=== PATIENT | male | born 1975 | race Caucasian/White ===

== ENCOUNTER → 2022-01-02 | Outpatient (CLI) | payer BC ==
--- NOTE | 2022-01-03 06:12 | MR ---
EXAMINATION TYPE: MR shoulder LT wo con DATE OF EXAM: 01/02/2022 COMPARISON: None HISTORY: LEFT SHOULDER PAIN Multiplanar multiecho imaging of the left shoulder with no contrast. Biceps tendon is intact. Glenoid ervin appear intact. The subscapularis tendon is intact. The supraspinatus tendon appears intact. No retraction. There is a minute shoulder joint effusion. Th ere is some spurring and cystic changes at the AC joint. No significant subacromial impingement. The infraspinatus tendon is intact. No evidence of a fracture. Humeral head is intact. IMPRESSION: There are small shoulder joint effusion suggestive of some mild synovitis. No evidence of rotator cuf f tear.
== END | disposition home or self-care (01) ==
LOC: RADMRIMAIN 10:44
PROVIDERS: ATTEND Orthopaedic Surgery
DX: M25.512 Pain in left shoulder (principal); M25.412 Effusion, left shoulder

== ENCOUNTER 2022-02-15 21:32 | Emergency (ER) | payer BC ==
[2022-02-15 21:37] VITALS: BP 130/84; PULSE 96; RESP 20; TEMP 98.2
[2022-02-15] MEDS ORDERED: AMOXIC-POT CLAV 875-125MG 1 EACH TAB PO STA (22:21)
[2022-02-15] MEDS ORDERED: SULFAMETHOX-TMP 800-160MG 1 EACH TAB PO STA (22:21)
[2022-02-15] MEDS ORDERED: AMOXIC-POT CLAV 875MG STARTER PACK 2 TAB BTL PO STA (22:23)
[2022-02-15] MEDS ORDERED: SULFAMETH-TMP DS STARTER PACK 2 TAB BTL PO STA (22:23)
--- NOTE | 2022-02-15 22:28 | ED ---
Skin/Abscess/FB HPI - General Chief complaint: Skin/Abscess/Foreign Body Stated complaint: Cyst in armpit,Pain Time Seen by Provider: 02/15/22 21:39 Source: patient, RN notes reviewed, old records reviewed Mode of arrival: ambulatory Limitations: no limitations - History of Present Illness Initial comments: This is a 46-year-old male to the emergency department today. Presents today for evaluation of right arm pain right armpit pain and swelling. Symptoms have been significantly worse over the last 3 days. He has had a similar episode on his left arm. He is without fevers. Patient was sent for evaluation from urgent care MD complaint: abscess/boil (Right axillary) -: days(s) Tetanus Up to Date: yes Location: [facility] Severity: severe Severity scale (1-10): 9 Quality: aching Consistency: constant Improves with: none Worsens with: none Context: recent illness, recent antibiotic Associated symptoms: denies other symptoms (Patient start antibiotics today) Treatments Prior to Arrival: attempted to drain pus at home - Related Data Previous Rx's Medication Instructions Recorded Amoxic-Pot Clav 875-125Mg 1 tab PO Q12HR #20 tablet 02/15/22 [Augmentin 875-125] Sulfamethox-Tmp 800-160Mg [Bactrim 2 tab PO BID #40 tab 02/15/22 DS 800-160 mg] Allergies Allergy/AdvReac Type Severity Reaction Status Date / Time No Known Allergies Allergy Verified 02/15/22 21:37 Review of Systems ROS Statement: Those systems with pertinent positive or pertinent negative responses have been documented in the HPI. ROS Other: All systems not noted in ROS Statement are negative. Past Medical History Past Medical History: Hypertension History of Any Multi-Drug Resistant Organisms: MRSA Date of last positivie culture/infection: 05/12/20 MDRO Source:: MRSA BREAST Past Surgical History: Orthopedic Surgery Past Psychological History: No Psychological Hx Reported Smoking Status: Current every day smoker Past Alcohol Use History: Occasional Past Drug Use History: None Reported General Exam Limitations: no limitations General appearance: alert, in no apparent distress Head exam: Present: atraumatic, normocephalic, normal inspection Eye exam: Present: normal appearance, PERRL, EOMI. Absent: scleral icterus, conjunctival injection, periorbital swelling ENT exam: Present: normal exam, mucous membranes moist Neck exam: Present: normal inspection. Absent: tenderness, meningismus, lymphadenopathy Respiratory exam: Present: normal lung sounds bilaterally. Absent: respiratory distress, wheezes, rales, rhonchi, stridor Cardiovascular Exam: Present: regular rate, normal rhythm, normal heart sounds. Absent: systolic murmur, diastolic murmur, rubs, gallop, clicks GI/Abdominal exam: Present: soft, normal bowel sounds. Absent: distended, tenderness, guarding, rebound, rigid Extremities exam: Present: normal inspection, full ROM, tenderness (Right axillary tenderness, significant abscess), normal capillary refill. Absent: pedal edema, joint swelling, calf tenderness Back exam: Present: normal inspection Neurological exam: Present: alert, oriented X3, CN II-XII intact Psychiatric exam: Present: normal affect, normal mood Skin exam: Present: warm, dry, intact, normal color. Absent: rash Course Vital Signs 02/15/22 21:34 Temperature 98.2 F Pulse Rate 96 Respiratory 20 Rate Blood Pressure 130/84 O2 Sat by Pulse 94 L Oximetry - Reevaluation(s) Reevaluation #1: 02/15/22 22:25 Medical record is reviewed Reevaluation #2: 02/15/22 22:25 Patient improvement here in the Reevaluation #3: 02/15/22 22:25 patient informed of results and questions answered Medical Decision Making - Medical Decision Making 46 mailed ER with right arm. Axillary abscess. Patient has had this for 4 days is noticed, patient's abscesses opened here in the ER drainage with. The drainage, patient placed on antibiotics and can be discharged home Disposition Clinical Impression: Abscess of right axilla Disposition: HOME SELF-CARE Instructions (If sedation given, give patient instructions): Abscess (ED), Abscess Incision and Drainage (ED) Prescriptions: Amoxic-Pot Clav 875-125Mg [Augmentin 875-125] 1 tab PO Q12HR #20 tablet Sulfamethox-Tmp 800-160Mg [Bactrim DS 800-160 mg] 2 tab PO BID #40 tab Is patient prescribed a controlled substance at d/c from ED?: No Referrals: Radha Jung MD [Primary Care Provider] - 1-2 days Time of Disposition: 22:30
== END 2022-02-15 22:33 | disposition home or self-care (01) ==
LOC: EC 21:32
DX: L02.411 Cutaneous abscess of right axilla (principal); I10 Essential (primary) hypertension; F17.200 Nicotine dependence, unspecified, uncomplicated
CPT/HCPCS: 99283

== ENCOUNTER 2022-03-02 09:26 | Day surgery (SDC) | payer BC ==
[2022-02-28 08:52] VITALS: BMI 47.9
--- NOTE | 2022-03-02 02:14 | HP ---
HISTORY AND PHYSICAL DATE OF SURGERY: 03/02/2022 HISTORY OF PRESENT ILLNESS: Bryson York is a 46-year-old gentleman, seen with progressive left shoulder pain. We discussed options for treatment. He elected to proceed with left shoulder arthroscopy. Consent regarding the procedure was obtained. PAST MEDICAL HISTORY: Hypertension. PAST SURGICAL HISTORY: Knee arthroscopy. DAILY MEDICATION: Lisinopril. ALLERGIES: None. SOCIAL HISTORY: Noncontributory. PHYSICAL EVALUATION OF HIS LEFT SHOULDER: Flexion is 140 degrees, abduction is 130 degrees, external rotation is 50 degrees with pain and weakness. Tenderness along the anterolateral acromion and glenohumeral joint as well as rotator cuff insertion site. Impingement sign is positive at 100. He has a positive anterior apprehension sign. His distal neurovascular exam is intact. RADIOGRAPHS: Of the left shoulder revealed a type 2 acromion, evidence for acromioclavicular joint osteoarthritis. Left shoulder MRI revealed a labral cyst with possible labral tear and acromioclavicular joint osteoarthritic changes. IMPRESSION: 1. Left shoulder impingement with labral tear. 2. Left shoulder acromioclavicular joint osteoarthritis. 3. Hypertension. PLAN: Left shoulder arthroscopy with subacromial decompression, possible labral repair versus debridement. MMODL / IJN: [id number] /
[~2022-03-02 09:26] MED LIST: DEXAMETHASONE SOD PHOSPHATE 4 MG/ML 1 ML VIAL IV ONE; LACTATED RINGERS 1,000 ML IV SCH; ONDANSETRON 4 MG/2 ML VIAL IVP ONE; ceFAZolin 3 GM in SODIUM CHLORIDE 0.9% 100 ML IVPB PRN
[2022-03-02] MEDS ORDERED: MIDAZOLAM 2 MG/2 ML VIAL IVP ONE (10:41)
[2022-03-02] MEDS ORDERED: fentaNYL (PF) 50 MCG/ML 2 ML AMP IVP ONE (10:41)
[2022-03-02] MEDS ORDERED: fentaNYL (PF) 50 MCG/ML 2 ML AMP ONE (11:05)
[2022-03-02] MEDS ORDERED: SUCCINYLCHOLINE CHLORIDE 200 MG/10 ML VIAL IV ONE (11:05)
[2022-03-02] MEDS ORDERED: MIDAZOLAM 2 MG/2 ML VIAL ONE (11:05)
[2022-03-02] MEDS ORDERED: ROPIVACAINE 5 MG/ML 30 ML VIAL ONE (11:05)
[2022-03-02] MEDS ORDERED: LIDOCAINE 2% INJ 20 MG/ML (2 ML VIAL) ONE (11:05)
[2022-03-02] MEDS ORDERED: PROPOFOL 10 MG/ML 20 ML VIAL IV ONE (11:05)
--- NOTE | 2022-03-02 12:56 | P.OP ---
Date of Procedure: 03/02/22 Preoperative Diagnosis: Left shoulder impingement Postoperative Diagnosis: 1. Left shoulder rotator cuff tear 2. Left shoulder anterior labral tear 3. Left shoulder impingement Procedure(s) Performed: 1. Left shoulder arthroscopic rotator cuff repair 2. Left shoulder arthroscopic labral repair 3. Left shoulder arthroscopic subacromial decompression Implants: 23.5 Arthrex push lock anchors 14.75 Arthrex a lock anchor Anesthesia: GETA, regional (Interscalene block) Surgeon: Shyam Moya Wireless Manager #1: Torin Bhatt Estimated Blood Loss (ml): 10 Pathology: none sent Condition: stable Disposition: PACU Indications for Procedure: 46-year-old patient seen with progressive left shoulder pain. After treatment options were discussed, he elected to proceed with arthroscopy. Operative Findings: See description of procedure Description of Procedure: Patient underwent an interscalene block by department of anesthesia. The patient was then taken to the operative suite. The patient underwent a general anesthetic by the department of anesthesia. The patient was placed into a lateral position and secured. There was appropriate padding of the bony pro minence. Left shoulder was then prepped and draped in normal sterile orthopedic fashion. We placed the extremity in 10 pounds of longitudinal traction. A posterior incision was now made for a posterior working portal site. The trocar and cannula were inserted into the glenohumeral joint. Arthroscopy was initiated. Spinal needle was now inserted anteriorly, to ascertain the anterior working portal site. An incision was now made in that area, a trocar was inserted followed by a probe. There was an anterior labral tear from the 8:00 to 11 o'clock position. The superior posterior and inferior labrum were all found to be stable. The biceps tendon anchor were stable. There was some mild grade 1 chondromalacia changes anteriorly. At this point I debrided out some of the fraying of the anterior labrum. I now extended an anterior portal site and reduce a 8.75 cannula. With a motorized bur and abraded the anterior glenoid. I now passed 2 sutures through good bites of labral tissue. With the assistance of Nicholas YANEZ now drilled 2 holes for insertion of our push lock anchors into the anterior glenoid. I took each stitch individually and then placed the eyelet of the push lock into the pre-drill holes holding in position while Nicholas YANEZ deployed those anchors with good fixation noted of both the anchors. Residual suture limbs were clipped. We had a good stable repair. Instruments were now removed from the glenohumeral joint. Utilizing the posterior working portal site, the trocar and cannula were inserted into the subacromial space. Arthroscopy initiated. I made an incision 2 fingerbreadths lateral to the acromion. I introduced my trocar followed by my ArthroCare ablator. I now began ablating thick subacromial bursal tissue, which exposed the undersurface of the anterior acromion. There was diminished subacromial space. There was a very prominent anterior acromion. A motorized bur was introduced and a subacromial decompression was performed. I also excised some osteophytes off the inferior aspect of the distal clavicle. The AC joint was visualized and noted to be mildly arthritic, I did not think enough to warrant Rafiq procedure. I turned my attention to the rotator cuff. I noted a full-thickness perforation along the posterior aspect of the distal supraspinatus tendon. I now debrided the margins getting down to stable tendon tissue. The defect/tear measuring about 1.5 cm and was freely mobile over the footprint. I abraded the footprint with a motorized bur. With the assistance of Nicholas YANEZ I passed 2 everted mattress sutures through good bites of rotator cuff tendon. I now punched to holes in the footprint area for insertion of anchor. All 4 limbs of suture were passed through the eyelet of a 4.75 Arthrex swivel lock anchor. I placed the eyelet into the pre-punched hole. I held it in position while Nicholas YANEZ tensioned all 4 suture limbs and deployed the anchor with good fixation noted. All residual suture limbs were now clipped. We had good compression of the tendon along the entire footprint. Instruments now removed from the portal sites. All portal sites were approximated with nylon suture. Sterile dressings were applied followed by a shoulder sling. Torin YANEZ assisted in this complex case. The patient was awakened, transferred to a bed, and taken to recovery in stable condition.
[2022-03-02 13:08] VITALS: TEMP 97
[2022-03-02] MEDS: HYDROmorphone 0.5 MG/0.5 ML SYRINGE IVP PRN ×2 (13:33→13:48)
[2022-03-02 14:41] VITALS: BP 132/79; PULSE 88; RESP 17
--- NOTE | 2022-03-03 09:34 | P.ANPRN ---
Procedure Note - Anesthesia - Nerve Block Performed Left Interscalene Single Time Out Performed: Yes (1040) Date of Procedure: 03/03/22 Procedure Start Time: 10:41 Procedure Stop Time: 10:47 Location of Patient: PreOp Indication: Acute Post-Operative Pain, Requested by Surgeon Specifically requested for management of pain by DrFelicity: Shyam Moya Sedation Type: Sedate with meaningful contact maintained Preparation: Sterile Prep Position: Supine Catheter: None Needle Types: Pajunk Needle Gauge: 21 Ultrasound used to visualize needle placement: Yes Ultrasound used to observe medication spread: Yes Injectate: 0.5% Ropivacaine (see comment for volume) (30cc) Narrative: 30cc Blood Aspirated: No Pain Paresthesia on Injection Noted: No Resistance on Injection: Normal Image Stored and Saved: Yes Events: Uneventful and Well Tolerated
== END 2022-03-02 10:40 | disposition home or self-care (01) ==
LOC: OR 09:26
PROVIDERS: ATTEND Orthopaedic Surgery
DX: M75.122 Complete rotator cuff tear or rupture of left shoulder, not specified as traumatic (principal); S43.432A Superior glenoid labrum lesion of left shoulder, initial encounter; M75.42 Impingement syndrome of left shoulder; G89.18 Other acute postprocedural pain; M19.012 Primary osteoarthritis, left shoulder; I10 Essential (primary) hypertension; M94.212 Chondromalacia, left shoulder; M25.712 Osteophyte, left shoulder; F17.210 Nicotine dependence, cigarettes, uncomplicated; Z98.890 Other specified postprocedural states; Z79.899 Other long term (current) drug therapy; X58.XXXA Exposure to other specified factors, initial encounter
CPT/HCPCS: 29827; 29826; 29806; 64415; 76942; C1713 ×3; J2250; J0330; J1100; J0690; J2405; J3010; J2795; J2704; J1170; J2001

== ENCOUNTER 2023-05-07 22:59 | Emergency (ER) | payer BC, SELFPAY ==
--- NOTE | 2023-05-07 23:18 | ED ---
General Adult HPI - General Source: patient, RN notes reviewed <Esther Stone - Last Filed: 05/07/23 23:13> <Marlen Helms - Last Filed: 05/08/23 00:37> - General Stated complaint: Left Eye Irritation Time Seen by Provider: 05/07/23 23:16 - History of Present Illness Initial comments: 47 year old male presents to the emergency department for chief complaint of left eyelid swelling. He states that on he noticed a sore on his eyebrow. He has been putting mupiricin ointment. He reports that since then he has noticed swelling and redness to his eyelid. He admits to tearing. Denies visual changes or pain with EOMs. Denies fever, chills. (Esther Stone) She has a history of recurrent MRSA infections, patient reports that yesterday he pulled out and ingrown hair in his left medial eyebrow, he noted some purulent discharge at that time he did squeeze the area. Since then he's noted some worsening swelling and edema of the upper eyelid. No fevers chills. No vision changes. No pain with movement of the eye. (Marlen Helms) - Related Data Home Medications Medication Instructions Recorded Confirmed lisinopriL [Zestril] 10 mg PO QAM 02/28/22 03/02/22 Previous Rx's Medication Instructions Recorded HYDROcodone/APAP 10-325MG [Harmony 1 tab PO Q6HR PRN 7 Days #28 tab 03/02/22 10-325] Cephalexin [Keflex] 500 mg PO Q8HR 7 Days #21 cap 05/08/23 Sulfamethoxazole/Trimethoprim 1 each PO BID #14 tablet 05/08/23 [Bactrim DS 800-160 mg] Allergies Allergy/AdvReac Type Severity Reaction Status Date / Time No Known Allergies Allergy Verified 05/07/23 23:43 Review of Systems ROS Other: All systems not noted in ROS Statement are negative. <Esther Stone - Last Filed: 05/07/23 23:13> ROS Other: All systems not noted in ROS Statement are negative. <Marlen Helms - Last Filed: 05/08/23 00:37> ROS Statement: Those systems with pertinent positive or pertinent negative responses have been documented in the HPI. Past Medical History Past Medical History: Hypertension Additional Past Medical History / Comment(s): "Just finished antibiotics Sunday for a mass under my right armpit, resolved now." History of Any Multi-Drug Resistant Organisms: MRSA Date of last positivie culture/infection: 05/12/20 MDRO Source:: MRSA BREAST Past Surgical History: Orthopedic Surgery Additional Past Surgical History / Comment(s): Left knee surgery. Past Anesthesia/Blood Transfusion Reactions: No Reported Reaction Past Psychological History: No Psychological Hx Reported Smoking Status: Current every day smoker Past Alcohol Use History: Occasional Additional Past Alcohol Use History / Comment(s): Has been smoking since age 22, 1/2 ppd. Past Drug Use History: None Reported - Past Family History Mother Family Medical History: Deep Vein Thrombosis (DVT) <Esther Stone - Last Filed: 05/07/23 23:13> General Exam General appearance: alert, in no apparent distress Head exam: Present: atraumatic, normocephalic Eye exam: Present: PERRL, EOMI, other (Left eyelid is edematous and erythem atous) ENT exam: Present: normal oropharynx Neck exam: Present: normal inspection Respiratory exam: Absent: respiratory distress Cardiovascular Exam: Present: regular rate. Absent: tachycardia Rectal exam: Present: deferred Extremities exam: Present: full ROM Back exam: Present: normal inspection Neurological exam: Present: alert, oriented X3 Psychiatric exam: Present: normal affect, normal mood Skin exam: Present: warm, other (Small lesion in the eyebrow and erythema and edema of the eyelid as noted above) <Marlen Helms P - Last Filed: 05/08/23 00:37> Course Vital Signs 05/07/23 23:41 Temperature 97.8 F Pulse Rate 90 Respiratory 18 Rate Blood Pressure 132/78 O2 Sat by Pulse 95 Oximetry Medical Decision Making <Esther Stone - Last Filed: 05/07/23 23:13> <Marlen Helms P - Last Filed: 05/08/23 00:37> - Medical Decision Making I preformed the quick note portion of this chart. Signed by Esther Stone PA-C (Esther Stone) Was pt. sent in by a medical professional or institution ([facility], POLISHING WHEEL REPAIRER, urgent care, hospital, or [facility]...) When possible be specific @ -No Did you speak to anyone other than the patient for history (EMS, parent, family, police, friend...)? What history was obtained from this source @ -No Did you review nursing and triage notes (agree or disagree)? Why? @ -I reviewed and agree with nursing and triage notes Were old charts reviewed (outside hosp., previous admission, EMS record, old EKG, old radiological studies, urgent care reports/EKG's, [facility] records)? Report findings @ -No old charts were reviewed Differential Diagnosis (chest pain, altered mental status, abdominal pain women, abdominal pain men, vaginal bleeding, weakness, fever, dyspnea, syncope, headache, dizziness, GI bleed, back pain, seizure, CVA, palpatations, mental health)? @ -M.D. of differential includes cellulitis, preseptal cellulitis, orbital cellulitis, ALLERGIC reaction EKG interpreted by me (3pts min.). @ -As above X-rays interpreted by me (1pt min.). @ -None done CT interpreted by me (1pt min.). @ -None done U/S interpreted by me (1pt. min.). @ -None done What testing was considered but not performed or refused? (CT, X-rays, U/S, labs)? Why? @ -None What meds were considered but not given or refused? Why? @ -None Did you discuss the management of the patient with other professionals (professionals i.e. [facility] [facility], POLISHING WHEEL REPAIRER, lab, RT, psych nurse, medical social consultant, candy maker helper, teacher, airport operations officer, piano case maker)? Give summary @ -No Was smoking cessation discussed for >3mins.? @ -No Was critical care preformed (if so, how long)? @ -No Were there social determinants of health that impacted care today? How? (Homelessness, low income, unemployed, alcoholism, drug addiction, transportation, low edu. Level, literacy, decrease access to med. care, penitentiary, rehab)? @ -No Was there de-escalation of care discussed even if they declined (Discuss DNR or withdrawal of care, Hospice)? DNR status @ -No What co-morbidities impacted this encounter? (DM, HTN, Smoking, COPD, CAD, Cancer, CVA, ARF, Chemo, Hep., AIDS, mental health diagnosis, sleep apnea, morbid obesity)? @ -None Was patient admitted / discharged? Hospital course, mention meds given and route, prescriptions, significant lab abnormalities, going to OR and other pertinent info. @ -Discharged Patient was seen and evaluated, history is obtained from patient. Patient has some cellulitis from a small abscess in the left medial eyebrow. There are some dependent edema of the left upper eyelid. No signs of orbital cellulitis. Patient has a history of MRSA he will be treated with Bactrim and Keflex. First doses were given in the ER patient was discharged home with prescriptions and very close return parameters including returning for any eye pain, pain with movement of the eye, vision changes, fevers or any new or concerning symptoms. Undiagnosed new problem with uncertain prognosis? @ -No Drug Therapy requiring intensive monitoring for toxicity (Heparin, Nitro, Insulin, Cardizem)? @ -No Were any procedures done? @ -No Diagnosis/symptom? @ -Preseptal cellulitis Acute, or Chronic, or Acute on Chronic? @ -Acute Uncomplicated (without systemic symptoms) or Complicated (systemic symptoms)? @ -Uncomplicated Side effects of treatment? @ -No Exacerbation, Progression, or Severe Exacerbation? @ -No Poses a threat to life or bodily function? How? (Chest pain, [place], [place], pneumonia, PE, COPD, DKA, ARF, appy, cholecystitis, CVA, Diverticulitis, Homicidal, Suicidal, threat to staff... and all critical care pts) @ -Yes, can advance to orbital cellulitis, meningitis or epidural abscess, sepsis and (Marlen Helms) Disposition <Esther Stone - Last Filed: 05/07/23 23:13> Is patient prescribed a controlled substance at d/c from ED?: No <Marlen Helms - Last Filed: 05/08/23 00:37> Clinical Impression: Preseptal cellulitis of left upper eyelid Disposition: HOME SELF-CARE Condition: Stable Prescriptions: Sulfamethoxazole/Trimethoprim [Bactrim DS 800-160 mg] 1 each PO BID #14 tablet Cephalexin [Keflex] 500 mg PO Q8HR 7 Days #21 cap Referrals: Radha Jung MD [Primary Care Provider] - 1-2 days
[2023-05-07 23:47] VITALS: RESP 18
[2023-05-08] MEDS ORDERED: CEPHALEXIN 500MG STARTER PACK 4 CAP BTL PO STA (00:25)
[2023-05-08] MEDS ORDERED: SULFAMETH-TMP DS STARTER PACK 2 TAB BTL PO STA (00:25)
[2023-05-08 00:58] VITALS: BP 156/86; PULSE 74; TEMP 97.9
== END 2023-05-08 00:39 | disposition home or self-care (01) ==
LOC: EC 22:59
DX: L03.213 Periorbital cellulitis (principal); I10 Essential (primary) hypertension; F17.210 Nicotine dependence, cigarettes, uncomplicated; Z79.899 Other long term (current) drug therapy
CPT/HCPCS: 99282

== ENCOUNTER 2023-12-01 02:48 | Emergency (ER) | payer BC ==
[2023-12-01 02:56] VITALS: RESP 20
--- NOTE | 2023-12-01 03:21 | ED ---
Skin/Abscess/FB HPI - General Chief complaint: Skin/Abscess/Foreign Body Stated complaint: Infection Time Seen by Provider: 12/01/23 03:19 Source: patient, RN notes reviewed Mode of arrival: ambulatory Limitations: no limitations - History of Present Illness Initial comments: 48-year-old male presented to the ER with a chief complaint of a left scalp in fection. Patient states he recurrently gets lesions on his scalp that he picks at and purulent drainage presents. He uses mupirocin which usually clears it up. He states this lesion popped up yesterday and he has been placing antibiotic ointment on. He states today he noticed increase of pain and swelling to his face which brought him to the ER. He denies any fevers, chills, nausea, vomiting, chest pain, shortness of breath. - Related Data Home Medications Medication Instructions Recorded Confirmed lisinopriL [Zestril] 10 mg PO QAM 02/28/22 03/02/22 Previous Rx's Medication Instructions Recorded HYDROcodone/APAP 10-325MG [[facility] 1 tab PO Q6HR PRN 7 Days #28 tab 03/02/22 10-325] Cephalexin [Keflex] 500 mg PO Q8HR 7 Days #21 cap 05/08/23 Sulfamethoxazole/Trimethoprim 1 each PO BID #14 tablet 05/08/23 [Bactrim DS 800-160 mg] Cephalexin [Keflex] 500 mg PO Q6HR #40 cap 12/01/23 Mupirocin [Bactroban Nasal 1 applic TOPICAL BID #1 gm 12/01/23 Ointment 2% (with applicator)] Sulfamethox-Tmp 800-160Mg [Bactrim 1 each PO Q12HR #20 tab 12/01/23 Ds] Allergies Allergy/AdvReac Type Severity Reaction Status Date / Time No Known Allergies Allergy Verified 12/01/23 02:56 Review of Systems ROS Statement: Those systems with pertinent positive or pertinent negative responses have been documented in the HPI. ROS Other: All systems not noted in ROS Statement are negative. Past Medical History Past Medical History: Hypertension Additional Past Medical History / Comment(s): "Just finished antibiotics Sunday for a mass under my right armpit, resolved now." History of Any Multi-Drug Resistant Organisms: MRSA Date of last positivie culture/infection: 05/12/20 MDRO Source:: MRSA BREAST Past Surgical History: Orthopedic Surgery Additional Past Surgical History / Comment(s): Left knee surgery. Past Anesthesia/Blood Transfusion Reactions: No Reported Reaction Past Psychological History: No Psychological Hx Reported Smoking Status: Current every day smoker Past Alcohol Use History: Occasional Past Drug Use History: None Reported - Past Family History Mother Family Medical History: Deep Vein Thrombosis (DVT) General Exam Limitations: no limitations General appearance: alert, in no apparent distress Head exam: Present: other (2 cm tender fluctuant area to left scalp) Eye exam: Present: normal appearance, PERRL, EOMI. Absent: scleral icterus, conjunctival injection, periorbital swelling Pupils: Present: normal accommodation ENT exam: Present: normal exam, normal oropharynx, mucous membranes moist Neck exam: Present: normal inspection. Absent: tenderness, meningismus, lymphadenopathy Respiratory exam: Present: normal lung sounds bilaterally. Absent: respiratory distress, wheezes, rales, rhonchi, stridor Cardiovascular Exam: Present: regular rate, normal rhythm, normal heart sounds. Absent: systolic murmur, diastolic murmur, rubs, gallop, clicks Skin exam: Present: warm, dry, intact, normal color. Absent: rash Course Vital Signs 12/01/23 02:53 Temperature 97.7 F Pulse Rate 82 Respiratory 20 Rate Blood Pressure 113/73 O2 Sat by Pulse 99 Oximetry Procedures - Incision & Drainage Consent Obtained: verbal consent Indication: abscess Site: scalp Size (cm): 2 Anesthetic Used: lidocaine 1%, without epi Amount (mLs): 3 I&D Cleaning Method: Alcohol Wipe Sterile Field Used?: Yes Ultrasound used: No Needle Aspiration Performed?: Yes I&D Drainage Obtained: Pus, Blood Culture Obtained?: Yes Patient Tolerated Procedure: well, no complications Medical Decision Making - Medical Decision Making Was pt. sent in by a medical professional or institution (, PA, STRETCHER LEVELER OPERATOR, urgent care, hospital, or correction...) When possible be specific @ -No Did you speak to anyone other than the patient for history (EMS, parent, family, police, friend...)? What history was obtained from this source @ -No Did you review nursing and triage notes (agree or disagree)? Why? @ -I reviewed and agree with nursing and triage notes Were old charts reviewed (outside hosp., previous admission, EMS record, old EKG, old radiological studies, urgent care reports/EKG's, correction records)? Report findings @ -No old charts were reviewed Differential Diagnosis (chest pain, altered mental status, abdominal pain women, abdominal pain men, vaginal bleeding, weakness, fever, dyspnea, syncope, headache, dizziness, GI bleed, back pain, seizure, CVA, palpatations, mental health, musculoskeletal)? @ -Abscess, cyst, ingrown hair this list is not meant to be all-inclusive EKG interpreted by me (3pts min.). @ -None X-rays interpreted by me (1pt min.). @ -None done CT interpreted by me (1pt min.). @ -None done U/S interpreted by me (1pt. min.). @ -None done What testing was considered but not performed or refused? (CT, X-rays, U/S, labs)? Why? @ -None What meds were considered but not given or refused? Why? @ -None Did you discuss the management of the patient with other professionals (professionals i.e. , PA, STRETCHER LEVELER OPERATOR, lab, RT, psych nurse, social organization professor, print room worker, teacher, credit officer, porter sample case)? Give summary @ -No Was smoking cessation discussed for >3mins.? @ -No Was critical care preformed (if so, how long)? @ -No Were there social determinants of health that impacted care today? How? (Homelessness, low income, unemployed, alcoholism, drug addiction, transportation, low edu. Level, literacy, decrease access to med. care, correction, rehab)? @ -No Was there de-escalation of care discussed even if they declined (Discuss DNR or withdrawal of care, Hospice)? DNR status @ -No What co-morbidities impacted this encounter? (DM, HTN, Smoking, COPD, CAD, Cancer, CVA, ARF, Chemo, Hep., AIDS, mental health diagnosis, sleep apnea, morbid obesity)? @ -Obese/ history of MRSA Was patient admitted / discharged? Hospital course, mention meds given and route, prescriptions, significant lab abnormalities, going to OR and other pertinent info. @ -Discharge. 48-year-old male presented to the ER with a chief complaint of left scalp lesion. History and physical exam completed. Vitals stable. Patient in no signs of acute distress and nontoxic-appearing. There was a 2 cm fluctuant tender area to left scalp concerning of an abscess. I&D performed and significant for purulent drainage. Culture was obtained. Patient will be started on Bactrim and Keflex, but first dose in the ER. Mupirocin also prescribed. Advise close follow-up with PCP. Return parameters discussed. Patient discharged in stable condition. Patient verbally expressed understan ding and agreement with care plan. Case discussed with ED attending, . Undiagnosed new problem with uncertain prognosis? @ -No Drug Therapy requiring intensive monitoring for toxicity (Heparin, Nitro, Insulin, Cardizem)? @ -No Were any procedures done? @ -No Diagnosis/symptom? @ -Abscess Acute, or Chronic, or Acute on Chronic? @ -Acute Uncomplicated (without systemic symptoms) or Complicated (systemic symptoms)? @ -Uncomplicated Side effects of treatment? @ -No Exacerbation, Progression, or Severe Exacerbation? @ -No Poses a threat to life or bodily function? How? (Chest pain, [place], [place], pneumonia, PE, COPD, DKA, ARF, appy, cholecystitis, CVA, Diverticulitis, Homicidal, Suicidal, threat to staff... and all critical care pts) @ -No Disposition Clinical Impression: Abscess Disposition: HOME SELF-CARE Condition: Stable Instructions (If sedation given, give patient instructions): Abscess Incision and Drainage (ED) Additional Instructions: Complete full course of antibiotics. Follow-up with PCP. Return to the ER for new or worsening concerns. Prescriptions: Sulfamethox-Tmp 800-160Mg [Bactrim Ds] 1 each PO Q12HR #20 tab Mupirocin [Bactroban Nasal Ointment 2% (with applicator)] 1 applic TOPICAL BID #1 gm Cephalexin [Keflex] 500 mg PO Q6HR #40 cap Is patient prescribed a controlled substance at d/c from ED?: No Referrals: Radha Jung MD [Primary Care Provider] - 1-2 days Time of Disposition: 03:48
[2023-12-01] MEDS: LIDOCAINE 1% INJ 10MG/ML (20 ML MDV) SQ ONE (03:28)
[2023-12-01] MEDS: SULFAMETHOX-TMP 800-160MG 1 EACH TAB PO STA (03:57)
[2023-12-01] MEDS: CEPHALEXIN 500 MG CAP PO STA (03:58)
[2023-12-01 04:02] VITALS: BP 115/75; PULSE 78; TEMP 97.8
== END 2023-12-01 04:07 | disposition home or self-care (01) ==
LOC: EC 02:48
DX: L02.811 Cutaneous abscess of head [any part, except face] (principal); F17.200 Nicotine dependence, unspecified, uncomplicated
CPT/HCPCS: 87070; 87205; 99283; 10060; J2001; 87077; 87186

== ENCOUNTER 2023-12-02 10:31 | Emergency (ER) | payer BC ==
[2023-12-02 10:39] VITALS: RESP 18; TEMP 98.4
--- NOTE | 2023-12-02 11:25 | ED ---
Eye Problem HPI - General Chief complaint: Eye Problems Stated complaint: eye swelling Time Seen by Provider: 12/02/23 10:48 Source: patient, RN notes reviewed Mode of arrival: ambulatory Limitations: no limitations - History of Present Illness Initial comments: This is a 48-year-old male presents to the emergency department chief complaint of left eye edema. Patient was seen in the emergency department in the morning of 12/01/2023 with an abscess to his left taoism that was incised and drained. Patient was sent home with antibiotics including Bactrim and Keflex and a culture was obtained of the wound. Patient states that over the past 2 days he has had worsening swelling of the left eye. He denies photophobia, pain with eye movement, blurry vision, double vision, decrease in visual acuity. He denies fevers, chills, nausea, vomiting. Patient has a history of MRSA infection. 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 - Related Data Home Medications Medication Instructions Recorded Confirmed lisinopriL [Zestril] 10 mg PO QAM 02/28/22 03/02/22 Previous Rx's Medication Instructions Recorded HYDROcodone/APAP 10-325MG [[facility] 1 tab PO Q6HR PRN 7 Days #28 tab 03/02/22 10-325] Cephalexin [Keflex] 500 mg PO Q8HR 7 Days #21 cap 05/08/23 Sulfamethoxazole/Trimethoprim 1 each PO BID #14 tablet 05/08/23 [Bactrim DS 800-160 mg] Cephalexin [Keflex] 500 mg PO Q6HR #40 cap 12/01/23 Mupirocin [Bactroban Nasal 1 applic TOPICAL BID #1 gm 12/01/23 Ointment 2% (with applicator)] Sulfamethox-Tmp 800-160Mg [Bactrim 1 each PO Q12HR #20 tab 12/01/23 Ds] Allergies Allergy/AdvReac Type Severity Reaction Status Date / Time No Known Allergies Allergy Verified 12/02/23 10:39 Review of Systems ROS Statement: Those systems with pertinent positive or pertinent negative responses have been documented in the HPI. ROS Other: All systems not noted in ROS Statement are negative. Past Medical History Past Medical History: Hypertension Additional Past Medical History / Comment(s): "Just finished antibiotics Sunday for a mass under my right armpit, resolved now." History of Any Multi-Drug Resistant Organisms: MRSA Date of last positivie culture/infection: 05/12/20 MDRO Source:: MRSA BREAST Past Surgical History: Orthopedic Surgery Additional Past Surgical History / Comment(s): Left knee surgery. Past Anesthesia/Blood Transfusion Reactions: No Reported Reaction Past Psychological History: No Psychological Hx Reported Smoking Status: Current every day smoker Past Alcohol Use History: Occasional Past Drug Use History: None Reported - Past Family History Mother Family Medical History: Deep Vein Thrombosis (DVT) General Exam Limitations: no limitations General appearance: alert, in no apparent distress Head exam: Present: other (left temporal edema) Eye exam: Present: PERRL, EOMI, periorbital swelling. Absent: normal appearance, scleral icterus, conjunctival injection, periorbital tenderness Pupils: Present: normal accommodation ENT exam: Present: normal exam, mucous membranes moist Neck exam: Present: normal inspection. Absent: tenderness, meningismus, lymphadenopathy Respiratory exam: Present: normal lung sounds bilaterally. Absent: respiratory distress, wheezes, rales, rhonchi, stridor Cardiovascular Exam: Present: regular rate, normal rhythm, normal heart sounds. Absent: systolic murmur, diastolic murmur, rubs, gallop, clicks GI/Abdominal exam: Present: soft, normal bowel sounds. Absent: distended, tenderness, guarding, rebound, rigid Extremities exam: Present: normal inspection, full ROM, normal capillary refill. Absent: tenderness, pedal edema, joint swelling, calf tenderness Back exam: Present: normal inspection Skin exam: Present: warm, dry, other (abscess with scabbing of the left taoism, erythema and edema, no signs of purulent drainage) Course Vital Signs 12/02/23 10:38 Temperature 98.4 F Pulse Rate 74 Respiratory 18 Rate Blood Pressure 153/97 O2 Sat by Pulse 95 Oximetry Medical Decision Making - Medical Decision Making Was pt. sent in by a medical professional or institution (, PA, RADIO CONTROL CRANE OPERATOR, urgent care, hospital, or alf...) When possible be specific @ -No Did you speak to anyone other than the patient for history (EMS, parent, family, police, friend...)? What history was obtained from this source @ -No Did you review nursing and triage notes (agree or disagree)? Why? @ -I reviewed and agree with nursing and triage notes Were old charts reviewed (outside hosp., previous admission, EMS record, old EKG, old radiological studies, urgent care reports/EKG's, alf records)? Report findings @ -The patient's chart note from 12/01/2023 session and drainage was performed of the abscess on the left temporal region patient was discharged home with Keflex and Bactrim. Reviewed the patient's wound cultures completed on 12/01/2023 which cultured Staph aureus. Differential Diagnosis (chest pain, altered mental status, abdominal pain women, abdominal pain men, vaginal bleeding, weakness, fever, dyspnea, syncope, headache, dizziness, GI bleed, back pain, seizure, CVA, palpatations, mental health, musculoskeletal)? @ -Cellulitis, preseptal cellulitis, periorbital cellulitis, abscess, ingrown medina ir, folliculitis, this list is not all inclusive. EKG interpreted by me (3pts min.). @ -None X-rays interpreted by me (1pt min.). @ -None done CT interpreted by me (1pt min.). @ -CT orbits with contrast reveals superficial soft tissue swelling over the left orbit, no underlying abscess identified. Findings appear preseptal. U/S interpreted by me (1pt. min.). @ -None done What testing was considered but not performed or refused? (CT, X-rays, U/S, labs)? Why? @ -None What meds were considered but not given or refused? Why? @ -None Did you discuss the management of the patient with other professionals (professionals i.e. , PA, RADIO CONTROL CRANE OPERATOR, lab, RT, psych nurse, social professionals, paramedic rn, teacher, senior major gifts officer, case checker)? Give summary @ -No Was smoking cessation discussed for >3mins.? @ -No Was critical care preformed (if so, how long)? @ -No Were there social determinants of health that impacted care today? How? (Homelessness, low income, unemployed, alcoholism, drug addiction, transportation, low edu. Level, literacy, decrease access to med. care, alf, rehab)? @ -No Was there de-escalation of care discussed even if they declined (Discuss DNR or withdrawal of care, Hospice)? DNR status @ -No What co-morbidities impacted this encounter? (DM, HTN, Smoking, COPD, CAD, Cancer, CVA, ARF, Chemo, Hep., AIDS, mental health diagnosis, sleep apnea, morbid obesity)? @ -None Was patient admitted / discharged? Hospital course, mention meds given and route, prescriptions, significant lab abnormalities, going to OR and other pertinent info. @ -Discharge. 48-year-old male with left orbital edema and erythema. Patient was evaluated in the emergency department on 12/01/2023 where incision and drainage was performed of a abscess of his left parotid region. Patient states that over the past few days he has had worsening swelling of the left eye. He denies pain with extraocular movement, no signs of proptosis on examination. Pupils are equal round and reactive. There is no pain with globe pressure. At this time patient will be evaluated. Laboratory studies in addition to CT of the orbits with contrast for further evaluation. Labs unremarkable, CT nonconcerning for orbital cellulitis, findings appear preseptal. Attempted incision and drainage of abscess to the left upper region was unsuccessful. Recommend the patient continue oral antibiotics prescribed including Bactrim and Keflex until completed course. Additionally use topical mupirocin. Recommend the patient follows up with his primary care provider this week for further evaluation. Patient was provided with a work note. All questions answered at bedside and strict return parameters discussed with the patient these verbalized understanding. Discussed with Dr. Hoff Undiagnosed new problem with uncertain prognosis? @ -No Drug Therapy requiring intensive monitoring for toxicity (Heparin, Nitro, Insulin, Cardizem)? @ -No Were any procedures done? @ -Vision and drainage of abscess of the left temporal region, unsuccessful. Diagnosis/symptom? @ -Orbital cellulitis Acute, or Chronic, or Acute on Chronic? @ -acute Uncomplicated (without systemic symptoms) or Complicated (systemic symptoms)? @ -Uncomplicated Side effects of treatment? @ -No Exacerbation, Progression, or Severe Exacerbation? @ -No Poses a threat to life or bodily function? How? (Chest pain, [place], [place], pneumonia, PE, COPD, DKA, ARF, appy, cholecystitis, CVA, Diverticulitis, Homicidal, Suicidal, threat to staff... and all critical care pts) @ -No - Lab Data Result diagrams: 12/02/23 11:49 12/02/23 11:49 Lab Results 12/02/23 12/02/23 12/02/23 Range/Units 11:49 11:49 11:49 WBC 7.2 (3.8-10.6) k/uL RBC 6.18 H (4.30-5.90) m/uL Hgb 16.5 (13.0-17.5) gm/dL Hct 53.0 (39.0-53.0) % MCV 85.7 (80.0-100.0) fL MCH 26.8 (25.0-35.0) pg MCHC 31.2 (31.0-37.0) g/dL RDW 13.7 (11.5-15.5) % Plt Count 241 (150-450) k/uL MPV 7.1 Neutrophils % 61 % Lymphocytes % 27 % Monocytes % 6 % Eosinophils % 4 % Basophils % 1 % Neutrophils # 4.4 (1.3-7.7) k/uL Lymphocytes # 1.9 (1.0-4.8) k/uL Monocytes # 0.4 (0-1.0) k/uL Eosinophils # 0.3 (0-0.7) k/uL Basophils # 0.1 (0-0.2) k/uL Sodium 138 (137-145) mmol/L Potassium 4.5 (3.5-5.1) mmol/L Chloride 104 (98-107) mmol/L Carbon Dioxide 26 (22-30) mmol/L Anion Gap 8 mmol/L BUN 10 (9-20) mg/dL Creatinine 0.88 (0.66-1.25) mg/dL Est GFR (CKD-EPI)AfAm >90 (>60 ml/min/1.73 sqM) Est GFR (CKD-EPI)NonAf >90 (>60 ml/min/1.73 sqM) Glucose 94 (74-99) mg/dL Plasma Lactic Acid Michel 1.1 (0.7-2.0) mmol/L Calcium 9.4 (8.4-10.2) mg/dL Total Bilirubin 0.9 (0.2-1.3) mg/dL AST 22 (17-59) U/L ALT 25 (4-49) U/L Alkaline Phosphatase 64 (38-126) U/L Total Protein 6.8 (6.3-8.2) g/dL Albumin 4.2 (3.5-5.0) g/dL Disposition Clinical Impression: Orbital cellulitis on left Disposition: HOME SELF-CARE Condition: Good Instructions (If sedation given, give patient instructions): Orbital Cellulitis (ED) Additional Instructions: Return the emergency department if symptoms worsen or improve. Complete full course of both antibiotics as prescribed. cycle Tylenol Motrin at home as needed. Recommend follow-up with your primary care provider next week for further evaluation. Is patient prescribed a controlled substance at d/c from ED?: No Referrals: Radha Jung MD [Primary Care Provider] - 1-2 days Time of Disposition: 13:21
[2023-12-02] MEDS: LIDOCAINE 1% INJ 10MG/ML (20 ML MDV) SQ ONE (11:35)
[2023-12-02 12:24] LABS: Basophils # (A) 0.1 k/uL (0-0.2); Basophils % (A) 1 %; Eosinophils # (A) 0.3 k/uL (0-0.7); Eosinophils % (A) 4 %; HGB 16.5 gm/dL (13.0-17.5); Lymphocytes # (A) 1.9 k/uL (1.0-4.8); Lymphocytes % (A) 27 %; MCH 26.8 pg (25.0-35.0); MCHC 31.2 g/dL (31.0-37.0); MCV 85.7 fL (80.0-100.0); Mean Platelet Volume 7.1; Monocytes # (A) 0.4 k/uL (0-1.0); Monocytes % (A) 6 %; Neutrophils # (A) 4.4 k/uL (1.3-7.7); Neutrophils % (A) 61 %; Platelet Count 241 k/uL (150-450); RBC 6.18 m/uL (4.30-5.90); RDW 13.7 % (11.5-15.5); WBC 7.2 k/uL (3.8-10.6)
[2023-12-02 12:39] LABS: ALT 25 U/L (4-49); AST 22 U/L (17-59); African American GFR (CKD) >90 (>60 ml/min/1.73 sqM); Albumin 4.2 g/dL (3.5-5.0); Alkaline Phosphatase 64 U/L (38-126); Anion Gap 8 mmol/L; Blood Urea Nitrogen 10 mg/dL (9-20); Calcium 9.4 mg/dL (8.4-10.2); Carbon Dioxide 26 mmol/L (22-30); Chloride 104 mmol/L (98-107); Glucose 94 mg/dL (74-99); Non-African American GFR(CKD) >90 (>60 ml/min/1.73 sqM); Potassium 4.5 mmol/L (3.5-5.1); Sodium 138 mmol/L (137-145); Total Bilirubin 0.9 mg/dL (0.2-1.3); Total Protein 6.8 g/dL (6.3-8.2)
--- NOTE | 2023-12-02 13:09 | CT ---
EXAMINATION TYPE: CT orbits w con DATE OF EXAM: 12/02/2023 COMPARISON: None HISTORY: LT eye edema and erythema, pt also stated he has MRSA infection on LT side of head. CT DLP: 392.1 mGycm Automated exposure control for dose reduction was used. Contrast: None Technique: Axial images 2 mm thick sections. Reconstructed images in the coronal and sagittal planes. FINDINGS: There is an air-fluid level within the right maxillary sinus. Correlate for acute right maxillary sin usitis. Some mucosal thickening and opacification of the mid right ethmoid air cells are present. There is soft tissue swelling over the left orbit. Extends to the nose. This is greater along the lat eral aspect. Diffuse mild soft tissue swelling of left cheek is also evident. No underlying abscess i s identified. Findings appear preseptal. Extraconal fat appears normal. Globes are symmetrical. Extra ocular muscles appear normal. Optic nerves are unremarkable. Superficial soft tissue swelling is over the left temporal parietal region IMPRESSION: 1. SUPERFICIAL SOFT TISSUE SWELLING OVER THE LEFT ORBIT. FINDINGS CAN BE COMPATIBLE WITH CELLULITIS. NO UNDERLYING ABSCESS IS IDENTIFIED. 2. SUBCUTANEOUS SWELLING LEFT TEMPORAL PARIETAL REGION.
[2023-12-02 13:40] VITALS: BP 146/87; PULSE 72
== END 2023-12-02 13:40 | disposition home or self-care (01) ==
LOC: EC 10:31
DX: H05.012 Cellulitis of left orbit (principal); F17.200 Nicotine dependence, unspecified, uncomplicated
CPT/HCPCS: 36415; 80053; 83605; 85025; 70481; 99284; J2001; Q9967

== ENCOUNTER 2024-10-11 09:35 | Emergency (ER) | payer BC ==
[2024-10-11 09:41] VITALS: PULSE 78; RESP 18
--- NOTE | 2024-10-11 10:28 | ED ---
Eye Problem HPI - General Chief complaint: Eye Problems Stated complaint: eye swelling Time Seen by Provider: 10/11/24 10:27 Source: patient, RN notes reviewed Mode of arrival: ambulatory Limitations: no limitations - History of Present Illness Initial comments: 48-year-old male presented the ER for evaluation of right eye swelling. Patient states he woke around around 8:30 AM and began to rub his eyes. He states he walked into the bathroom and and upon looking in the mirror he noticed swelling inferior to his right eye. He states this has happened in the past and he was diagnosed with preseptal cellulitis and was on oral antibiotics. He is concerned this may be happening again. 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 He denies any double or blurry vision or pain with extraocular motions. No drainage from eye. No known injuries. Patient does report he has been having a sinus pressure over the past couple of days and believes he may have a sinus infection. He denies any fevers, chills, myalgias, cough, shortness of breath, chest discomfort or other complaints at this time. - Related Data Home Medications Medication Instructions Recorded Confirmed lisinopriL [Zestril] 10 mg PO QAM 02/28/22 03/02/22 Previous Rx's Medication Instructions Recorded HYDROcodone/APAP 10-325MG [[place] 1 tab PO Q6HR PRN 7 Days #28 tab 03/02/22 10-325] Cephalexin [Keflex] 500 mg PO Q8HR 7 Days #21 cap 05/08/23 Sulfamethoxazole/Trimethoprim 1 each PO BID #14 tablet 05/08/23 [Bactrim DS 800-160 mg] Cephalexin [Keflex] 500 mg PO Q6HR #40 cap 12/01/23 Mupirocin [Bactroban Nasal 1 applic TOPICAL BID #1 gm 12/01/23 Ointment 2% (with applicator)] Sulfamethox-Tmp 800-160Mg [Bactrim 1 each PO Q12HR #20 tab 12/01/23 Ds] Amoxic-Pot Clav 875-125Mg 1 tab PO Q12HR #20 tab 10/11/24 [Augmentin 875-125] Sulfamethox-Tmp 800-160Mg [Bactrim 1 each PO Q12HR #20 tab 10/11/24 Ds] Allergies Allergy/AdvReac Type Severity Reaction Status Date / Time No Known Allergies Allergy Verified 10/11/24 09:41 Review of Systems ROS Statement: Those systems with pertinent positive or pertinent negative responses have been documented in the HPI. ROS Other: All systems not noted in ROS Statement are negative. Past Medical History Past Medical History: Hypertension Additional Past Medical History / Comment(s): "Just finished antibiotics Sunday for a mass under my right armpit, resolved now." History of Any Multi-Drug Resistant Organisms: MRSA Date of last positivie culture/infection: 05/12/20 MDRO Source:: MRSA BREAST Past Surgical History: Orthopedic Surgery Additional Past Surgical History / Comment(s): Left knee surgery. Past Anesthesia/Blood Transfusion Reactions: No Reported Reaction Past Psychological History: No Psychological Hx Reported Smoking Status: Current every day smoker Past Alcohol Use History: Occasional Past Drug Use History: None Reported - Past Family History Mother Family Medical History: Deep Vein Thrombosis (DVT) General Exam Limitations: no limitations General appearance: alert, in no apparent distress Eye exam: Present: normal appearance, PERRL, EOMI (Pain less), periorbital swelling (Mild inferior right eye). Absent: scleral icterus, conjunctival injection Pupils: Present: normal accommodation Respiratory exam: Present: normal lung sounds bilaterally. Absent: respiratory distress, wheezes, rales, rhonchi, stridor Cardiovascular Exam: Present: regular rate, normal rhythm, normal heart sounds. Absent: systolic murmur, diastolic murmur, rubs, gallop, clicks Neurological exam: Present: alert, oriented X3, CN II-XII intact Skin exam: Present: warm, dry, intact, normal color. Absent: rash Course Vital Signs 10/11/24 10/11/24 09:38 10:55 Temperature 98 F 98 F Pulse Rate 78 78 Respiratory 18 18 Rate Blood Pressure 137/74 130/82 O2 Sat by Pulse 98 98 Oximetry Medical Decision Making - Medical Decision Making Was pt. sent in by a medical professional or institution (, PA, REGISTERED MEDICAL TRANSCRIPTIONIST, urgent care, hospital, or custodial...) When possible be specific @ -No Did you speak to anyone other than the patient for history (EMS, parent, family, police, friend...)? What history was obtained from this source @ -No Did you review nursing and triage notes (agree or disagree)? Why? @ -I reviewed and agree with nursing and triage notes Were old charts reviewed (outside hosp., previous admission, EMS record, old EKG, old radiological studies, urgent care reports/EKG's, custodial records)? Report findings @ -No old charts were reviewed Differential Diagnosis (chest pain, altered mental status, abdominal pain women, abdominal pain men, vaginal bleeding, weakness, fever, dyspnea, syncope, headache, dizziness, GI bleed, back pain, seizure, CVA, palpatations, mental health, musculoskeletal)? @ -Corneal abrasion, ocular foreign body, hyphema, conjunctivitis, globe rupture, acute angle-closure glaucoma this list is not meant to be all-inclusive EKG interpreted by me (3pts min.). @ -None done X-rays interpreted by me (1pt min.). @ -None done CT interpreted by me (1pt min.). @ -None done U/S interpreted by me (1pt. min.). @ -None done What testing was considered but not performed or refused? (CT, X-rays, U/S, labs)? Why? @ -None What meds were considered but not given or refused? Why? @ -None Did you discuss the management of the patient with other professionals (professionals i.e. , PA, REGISTERED MEDICAL TRANSCRIPTIONIST, lab, RT, psych nurse, social service coordinator, x ray equipment tester, teacher, special loan officer, supervisor case loading)? Give summary @ -No Was smoking cessation discussed for >3mins.? @ -No Was critical care preformed (if so, how long)? @ -No Were there social determinants of health that impacted care today? How? (Homelessness, low income, unemployed, alcoholism, drug addiction, transportation, low edu. Level, literacy, decrease access to med. care, fdc, rehab)? @ -No Was there de-escalation of care discussed even if they declined (Discuss DNR or withdrawal of care, Hospice)? DNR status @ -No What co-morbidities impacted this encounter? (DM, HTN, Smoking, COPD, CAD, Cancer, CVA, ARF, Chemo, Hep., AIDS, mental health diagnosis, sleep apnea, morbid obesity)? @ -None Was patient admitted / discharged? Hospital course, mention meds given and route, prescriptions, significant lab abnormalities, going to OR and other p ertinent info. @ -Discharge. 48-year-old male presented the ER for evaluation of right eye swelling. Vital stable. Exam remarkable for mild edema to the inferior right eye. There is no conjunctival injection, Sidel sign, purulent drainage, hyphema or pain with extraocular motions. Visual acuity left 20/40 visual acuity right 20/70. Patient states he is due for an eye exam. Patient will be started on Augmentin and covered for MRSA with Bactrim for concern of possible early preseptal cellulitis as he has had this in the past. I advised him to follow-up closely with PCP for further evaluation and treatment in the next 24 to 48 hours. Return parameters discussed. Patient discharged stable condition. Patient verbally expressed understanding and agreement with care plan. Case discussed with ED attending, Dr. Renee. Undiagnosed new problem with uncertain prognosis? @ -No Drug Therapy requiring intensive monitoring for toxicity (Heparin, Nitro, Insulin, Cardizem)? @ -No Were any procedures done? @ -No Diagnosis/symptom? @ -Blepharitis Acute, or Chronic, or Acute on Chronic? @ -Acute Uncomplicated (without systemic symptoms) or Complicated (systemic symptoms)? @ -Uncomplicated Side effects of treatment? @ -No Exacerbation, Progression, or Severe Exacerbation? @ -No Poses a threat to life or bodily function? How? (Chest pain, [place], [place], pneumonia, PE, COPD, DKA, ARF, appy, cholecystitis, CVA, Diverticulitis, Homicidal, Suicidal, threat to staff... and all critical care pts) @ -Low Disposition Clinical Impression: Eyelid edema Disposition: HOME SELF-CARE Condition: Stable Additional Instructions: Follow-up with PCP. Return to the ER for any new or worsening symptoms. Prescriptions: Amoxic-Pot Clav 875-125Mg [Augmentin 875-125] 1 tab PO Q12HR #20 tab Sulfamethox-Tmp 800-160Mg [Bactrim Ds] 1 each PO Q12HR #20 tab Is patient prescribed a controlled substance at d/c from ED?: No Referrals: Radha Jung MD [Primary Care Provider] - 1-2 days Time of Disposition: 10:46
[2024-10-11 10:43] VITALS: TEMP 98
[2024-10-11 10:57] VITALS: BP 130/82
== END 2024-10-11 10:58 | disposition home or self-care (01) ==
LOC: EC 09:35
DX: H01.003 Unspecified blepharitis right eye, unspecified eyelid (principal); F17.200 Nicotine dependence, unspecified, uncomplicated
CPT/HCPCS: 99283